=== PATIENT | male | born 1945 | race Caucasian/White ===

== ENCOUNTER → 2018-07-07 | Outpatient (CLI) | payer MEDICARE ==
[~2018-07-07] MED LIST: ACYC-114 PO; AMLO-150 PO; APIX5TAB PO; CHOL200074 PO; OMEP20TA62 PO; PRED20TA PO; TAMS-11 PO; TEST5GEL17 TD
[2018-07-07 10:28] LABS: MICROSCOPIC NOT IND
[2018-07-07 10:30] LABS: BASOPHILS # (AUTO) 0.04 x10^3/uL (0-0.1); BASOPHILS % (AUTO) 1 % (0-1); EOSINOPHILS # (AUTO) 0.02 x10^3/uL (0-0.4); EOSINOPHILS % (AUTO) 0 % (1-7); LYMPHOCYTES % (AUTO) 7 % (22-44); MD NO; MEAN CORPUSCULAR HEMOGLOBIN 30.8 pg (27.5-34.5); MEAN CORPUSCULAR HGB CONC 33.6 g/dL (33.2-36.2); MEAN CORPUSCULAR VOLUME 91.6 fL (81-97); MEAN PLATELET VOLUME 8.1 fL (7.4-10.4); MONOCYTES # (AUTO) 0.54 x10^3/uL (0.2-0.8); MONOCYTES % (AUTO) 6 % (2-9); NEUTROPHILS # (AUTO) 7.15 x10^3/uL (1.8-6.8); NEUTROPHILS % (AUTO) 86 % (42-75); PLATELET COUNT 206 x10^3/uL (130-400); RED BLOOD COUNT 4.76 x10^6/uL (4.38-5.82); RED CELL DISTRIBUTION WIDTH 15.4 % (9.4-14.8)
[2018-07-07 10:32] LABS: CULTURE INDICATED? NO
[2018-07-07 10:37] LABS: INTERNATIONAL NORMALIZED RATIO 0.93 (0.93-1.1); PROTHROMBIN TIME 9.8 Seconds (9.6-11.5)
[2018-07-07 10:48] LABS: ALBUMIN 3.7 g/dL (3.4-5.0); ANION GAP 6 mmol/L (5-15); CALCIUM 9.3 mg/dL (8.5-10.1); CHLORIDE 106 mmol/L (98-107)
[2018-07-07 10:51] LABS: ALANINE AMINOTRANSFERASE 32 U/L (12-78); ALKALINE PHOSPHATASE 74 U/L (45-117); BILIRUBIN,TOTAL 1.3 mg/dL (0.2-1.0); CREATININE 1.18 mg/dL (0.7-1.3); TOTAL PROTEIN 7.1 g/dL (6.4-8.2)
== END | disposition home or self-care (01) ==
LOC: STAR 09:12
PROVIDERS: ATTEND Neurological Surgery
DX: Z01.811 Encounter for preprocedural respiratory examination (principal); M48.061 Spinal stenosis, lumbar region without neurogenic claudication
CPT/HCPCS: 36415; 71046; 80053; 81003; 85025; 85610; 85730; 93005

== ENCOUNTER 2018-07-21 09:24 | Inpatient (IN) | payer MEDICARE ==
[~2018-07-21] VITALS: Ht 177.8 cm; Wt 88.2 kg
[~2018-07-21 09:24] MED LIST changes: +BACITRACIN 50,000 UNIT ONE; +BUPIVACAINE/EPI 0.5% 1:200K ONE; +BUPIVACAINE/PF 0.25% ONE; +EPINEPHRINE 1 MG/ML, 1ML ONE; +THROMBIN 5,000 UNIT VIAL TP ONE
[2018-07-21] MEDS ORDERED: LACTATED RINGERS 1,000 ML IV SCH (09:46)
[2018-07-21] MEDS ORDERED: ACETAMINOPHEN 500 MG TABLET PO ONE (10:00)
[2018-07-21] MEDS ORDERED: TAMSULOSIN 0.4 MG CAP.ER.24H PO ONE (10:00)
[2018-07-21] MEDS ORDERED: GABAPENTIN 300 MG CAPSULE PO ONE (10:00)
[2018-07-21 10:30] LABS: INTERNATIONAL NORMALIZED RATIO 0.98 (0.93-1.1); PROTHROMBIN TIME 10.3 Seconds (9.6-11.5)
[2018-07-21] MEDS ORDERED: MIDAZOLAM 1 MG/ML, 2ML ONE (11:08)
[2018-07-21] MEDS ORDERED: FENTANYL PF 250 MCG/5ML ONE (11:08)
[2018-07-21] MEDS ORDERED: SUCCINYLCHOLINE 20 MG/ML, 10ML ONE (11:47)
[2018-07-21] MEDS ORDERED: VASOPRESSIN 20 UNIT/ML, 1ML ONE (11:47)
[2018-07-21] MEDS ORDERED: ROCURONIUM 10 MG/ML,10ML ONE (11:47)
[2018-07-21] MEDS ORDERED: PHENYLEPHRINE 10 MG/ML ONE (11:47)
[2018-07-21] MEDS ORDERED: EPHEDRINE 50 MG/ML, 1ML ONE (11:47)
[2018-07-21] MEDS: THROMBIN 20,000 UNIT VIAL TP ONE ×2 (12:18→12:49)
[2018-07-21] MEDS ORDERED: DEXAMETHASONE 4 MG/ML, 1ML ONE (12:38)
[2018-07-21] MEDS ORDERED: CEFAZOLIN 1,000 MG ONE (12:38)
[2018-07-21] MEDS ORDERED: PROPOFOL 10 MG/ML, 20ML ONE (12:38)
[2018-07-21] MEDS ORDERED: ONDANSETRON 2MG/ML, 2ML ONE (12:38)
[2018-07-21] MEDS ORDERED: VANCOMYCIN 1,000 MG ONE (13:24)
[2018-07-21] MEDS ORDERED: FENTANYL PF 100 MCG/2ML ONE (14:24)
[2018-07-21] MEDS ORDERED: OXYcodone 5 MG/5 ML ORAL.SOL UDC ONE (14:24)
[2018-07-21] MEDS ORDERED: DIAZEPAM 5 MG/ML, 2ML IVPush PRN (14:30)
[2018-07-21] MEDS ORDERED: MIDAZOLAM 1 MG/ML, 2ML IV PRN (14:30)
[2018-07-21] MEDS ORDERED: MORPHINE SULFATE 4 MG/ML, 1ML IVPush PRN (14:30)
[2018-07-21] MEDS ORDERED: ONDANSETRON 2MG/ML, 2ML IV PRN ×2 (14:30→17:00)
[2018-07-21] MEDS ORDERED: DIPHENHYDRAMINE 50 MG/ML, 1ML IVPush PRN ×2 (14:30→17:00)
[2018-07-21] MEDS ORDERED: PROMETHAZINE 25 MG/ML, 1ML IV PRN (14:30)
[2018-07-21] MEDS ORDERED: METOPROLOL 1 MG/ML, 5ML IV PRN (14:30)
[2018-07-21] MEDS ORDERED: PROMETHAZINE 25 MG SUPP PR PRN (14:30)
[2018-07-21] MEDS ORDERED: hydrALAzine 20 MG/ML, 1ML IV PRN (14:30)
[2018-07-21] MEDS ORDERED: EPHEDRINE 50 MG/ML, 1ML IVPush PRN (14:30)
[2018-07-21] MEDS ORDERED: MEPERIDINE/PF 25MG/0.5ML IVPush PRN (14:30)
[2018-07-21] MEDS ORDERED: OXYcodone 5 MG/5 ML ORAL.SOL UDC PO PRN (14:30)
[2018-07-21] MEDS ORDERED: EPHEDRINE 50 MG/ML, 1ML IM PRN (14:30)
[2018-07-21] MEDS ORDERED: PROMETHAZINE 12.5 MG SUPP PR PRN (14:30)
[2018-07-21] MEDS ORDERED: ONDANSETRON ODT 8 MG PO PRN (14:30)
[2018-07-21] MEDS: FENTANYL PF 100 MCG/2ML IV PRN ×2 (14:37→15:11)
[2018-07-21] MEDS ORDERED: TIZANIDINE 4MG TABLET PO PRN (15:30)
[2018-07-21] MEDS ORDERED: morphine SULFATE 10 MG/ML, 1ML IV PRN (17:00)
[2018-07-21] MEDS ORDERED: DIPHENHYDRAMINE 25 MG CAPSULE PO PRN (17:00)
[2018-07-21] MEDS ORDERED: TIZANIDINE 2MG TABLET PO PRN (17:00)
[2018-07-21] MEDS ORDERED: HYDROmorphone PCA 30 MG/30 ML IV PRN (17:00)
[2018-07-21] MEDS ORDERED: OXYcodone/APAP 10/325MG TABLET PO PRN (17:00)
[2018-07-21] MEDS ORDERED: MAGNESIUM HYDROXIDE 8%, 30ML UDC PO PRN (17:00)
[2018-07-21] MEDS ORDERED: BISACODYL 10 MG SUPP PR PRN (17:00)
[2018-07-21] MEDS: TESTOSTERONE MC SCH (17:48)
[2018-07-21] MEDS: ACYCLOVIR 800 MG TABLET PO SCH (17:52)
[2018-07-21] MEDS: CEFAZOLIN PMX 1GM/50ML 50 ML IVPB SCH (19:40)
[2018-07-21] MEDS: NS + 20MEQ KCL 1,000 ML IV SCH (19:40)
[2018-07-21 20:00] VITALS: BP 111/64
[2018-07-21] MEDS ORDERED: OMEPRAZOLE 20 MG CAPSULE.DR PO SCH (21:00)
[2018-07-21] MEDS ORDERED: CHOLECALCIFEROL 1,000 UNIT TABLET PO SCH (21:00)
[2018-07-21] MEDS ORDERED: TAMSULOSIN 0.4 MG CAP.ER.24H PO SCH (21:00)
[2018-07-21] MEDS ORDERED: AMLODIPINE 5 MG TABLET PO SCH (21:00)
[2018-07-22 00:07] VITALS: BP 101/49
[2018-07-22] MEDS: TESTOSTERONE MC SCH ×2 (01:14→09:30)
[2018-07-22 04:39] VITALS: BP 114/68
[2018-07-22] MEDS: HYDROcodone/APAP 5/325 TABLET PO PRN ×2 (04:39→14:22)
[2018-07-22] MEDS: CEFAZOLIN PMX 1GM/50ML 50 ML IVPB SCH (04:39)
[2018-07-22] MEDS: NS + 20MEQ KCL 1,000 ML IV SCH (05:57)
[2018-07-22 08:02] VITALS: BP 101/63
[2018-07-22] MEDS ORDERED: TIZA2TAB PO (08:42)
[2018-07-22] MEDS ORDERED: HYDR-3237 PO (08:42)
[2018-07-22] MEDS: ACYCLOVIR 800 MG TABLET PO SCH (08:57)
[2018-07-22] MEDS ORDERED: SENNA/DOCUSATE TABLET PO SCH (09:00)
[2018-07-22 14:25] VITALS: BP 106/68
== END 2018-07-22 15:10 | disposition home or self-care (01) | DRG 518 ==
LOC: OUT 09:24 → 4NOR 15:57 → OUT 16:09 → 4NOR 16:09 → DCLOUNGE 07-22 14:58
PROVIDERS: ADMIT Neurological Surgery; ATTEND Neurological Surgery
PROC: 0SB20ZZ Excision of Lumbar Vertebral Disc, Open Approach (ICD-10-PCS; 2018-07-21)
PROC: 01NR0ZZ Release Sacral Nerve, Open Approach (ICD-10-PCS; 2018-07-21)
PROC: 00NY0ZZ Release Lumbar Spinal Cord, Open Approach (ICD-10-PCS; 2018-07-21)
PROC: 01NB0ZZ Release Lumbar Nerve, Open Approach (ICD-10-PCS; principal; 2018-07-21 12:30)
DX: M48.062 Spinal stenosis, lumbar region with neurogenic claudication (principal); R53.2 Functional quadriplegia; M51.26 Other intervertebral disc displacement, lumbar region; I10 Essential (primary) hypertension; M19.90 Unspecified osteoarthritis, unspecified site; K21.9 Gastro-esophageal reflux disease without esophagitis; M47.816 Spondylosis without myelopathy or radiculopathy, lumbar region; N40.0 Benign prostatic hyperplasia without lower urinary tract symptoms; G89.29 Other chronic pain; Z82.49 Family history of ischemic heart disease and other diseases of the circulatory system; Z79.899 Other long term (current) drug therapy; Z86.718 Personal history of other venous thrombosis and embolism; Z79.01 Long term (current) use of anticoagulants
CPT/HCPCS: 36415; 72100; 85610; 85730; G0378; J0171; J0690; J1100; J2250; J2405; J2704; J3010; J3360; J3370; J3480; J3490; J0330; J2370; J7120; J7512